=== PATIENT | male | born 1995 | race Caucasian/White ===

== ENCOUNTER 2017-03-02 09:31 | Emergency (ER) | payer OTHER ==
[~2017-03-02] VITALS: Ht 182.9 cm; Wt 75.3 kg
[2017-03-02 12:00] VITALS: BP 150/90
== END 2017-03-02 12:00 | disposition home or self-care (01) ==
LOC: ED 09:31
DX: S43.004A Unspecified dislocation of right shoulder joint, initial encounter (principal); Y93.67 Activity, basketball; Y93.89 Activity, other specified; Y99.8 Other external cause status; Y92.89 Other specified places as the place of occurrence of the external cause
CPT/HCPCS: J2001; Q0092